=== PATIENT | female | born 1975 | race African-American/Black ===

== ENCOUNTER 2022-09-19 20:37 | Emergency (ER) | payer BC ==
--- OUTSIDE RECORDS SUMMARY | 2022-09-19 20:41 | XMS REPORT | Continuity of Care Document ---
:1975 Author Organization [facility] t Address [address] [place] [address] Care Team Providers Name Role Phone LAURA GREGG Primary Care Physician Unavailable BRYAN DAIGLE Attending Clinician Unavailable Only, Ange Pob2 Test Attending Clinician Unavailable Bryan Daigle DO Attending Clinician Nurse, Adc Pob Immunization Attending Clinician Unavailable Maycol Nuñez Attending Clinician MAYCOL SANDERSON Attending Clinician Unavailable MAYCOL SANDERSON Admitting Clinician Unavailable Payers Payer Name Policy Type Policy Number Effective Date Expiration Date Hayden DUGANS O [id number] 2020 00:00:00 Problems Condition Condition Condition Status Onset Resolution Last Treating Co mments Source Name Details Category Date Date Treatment Clinician Date Other Other Disease Active 2015-10 Univers general general 2-06 [place] of counseling [place] advice and advice 00 Mi dical for for Branch contracept contracept alonzo alonzo management management Elevated Elevated Disease Active 2015-10 Unive rs blood blood 2-06 ity of pressure pressure 00:00: [place] reading reading 00 Medical without without Branch diagnosis diagnosis of of hypertensi hypertensi on on Fibroids Fibroids Disease Active 2015-10 Overview: Un dean 2-06 Formattin ity of 00:00: g of this [place] 00 note Medical might be Branch different from the original. Reports diagnosed in 2012, records requested Anemia Anemia Disease Active Overview: Univer s 11-28 Formattin ity of 00:00: g of this note Medical might be Branch different from the original. ICD10 Diagnosis Term Order Runner Utility Well woman Well woman Disease Active Overview : Univers exam exam 11-27 Formattin ity of 00:00: g of this note Medical might be Branch different from the original. Pap smear- NIL with absent ECC. Repeat in 1 [id number] Diagnosis Term Order Runner Utility Morbid Morbid Disease Active Univers obesity obesity 11-27 ity of 00:00: [place] 00 Medical Branch Allergies, Adverse Reactions, Alerts Allergy Allergy Status Severity Reaction(s) Onset Inactive Treating Comm ents Source Name Type Date Date Clinician Codeine Propensi Active Hives Univers ty to 11-27 ity of adverse 00:00: [place] reaction 00 Medical s Branch CODEINE DRUG Active Hives Univers INGREDI 11-27 ity of 00:00: [place] 00 Medical Branch Social History Social Habit Start Date Stop Date Quantity Comments Source Exposure to Not sure University SARS-CoV-2 [place] [facility] (event) Branch History SDOH University o f Alcohol Frequency [facility] edical Branch History SDNY University o f Alcohol Std [place] [facility] Drinks Branch History SDNY University o f Alcohol Binge [place] [facility] al [facility] Alcohol intake 2020-12-29 2020-12-29 Current drinker of Un iversity of 00:00:00 00:00:00 alcohol (finding) [facility] edical Branch Tobacco use and 2013-11-27 2013-11-27 Never used Universit y of exposure 00:00:00 00:00:00 [facility] Branch Alcohol Comment 2013-11-27 2013-11-27 occasionally Univers ity of 00:00:00 00:00:00 [facility] Sex Ass[birth year] At [birth year] Universit y of 00:00:00 00:00:00 [facility] Smoking Status Start Date Stop Date Source Never smoker [facility] Medical Branch Medications Ordered Filled Start Stop Current Ordering Indication Dosage Frequency Signature Comments Components Source Medication Medication Date Date Medication? Clinician (SIG) Name Name acetaminoph No 1000mg 1,000 mg, Univers en 12-30 Oral, ity of (TYLENOL) 00:45: 23:39 ONCE, 1 [place] tablet [place] :00 dose, Wed Medical 1,000 mg 12/29/20 at Branch 1845, Routine dexamethaso 2020- No 10mg 10 mg, Uni vers ne 12-30 Intramuscu ity of (DECADRON 00:30: 23:37 lar, ONCE, [place] PHOSPHATE) 00 :00 1 dose, Medica l injection Sun12/29/20 Bran ch 10 mg at 1830, STAT ketorolac 2020- No 30mg 30 mg, Unive rs (TORADOL) 12-2903 Intramuscu ity of injection 23:30: 22:32 lar, ONCE, [place] 30 mg 00 :00 1 dose, Medical 12/29/20 Branch at 1730, LIDIA
Fa culty member approving Restricted medication : MAYCOL SANDERSON traMADoL 50 Yes [id number] 50mg Take 1 Univ ers mg tablet 3-03 tablet by ity o f 00:00: mouth [place] 00 every 6 Medical (six) Branch hours as needed for Pain (scale 7-10). Indication s: acute pain ibuprofen Yes [id number] 800mg Take 1 U nivers 800 mg 3-03 tablet by ity of tablet 00:00: mouth [place] 00 every 6 Medical (six) Branch hours as needed for Pain (scale 4-6). traMADoL 50 Yes [id number] 50mg Take 1 Univ ers mg tablet 3-03 tablet by ity o f 00:00: mouth [place] 00 every 6 Medical (six) Branch hours as needed for Pain (scale 7-10). Indication s: acute pain ibuprofen Yes [id number] 800mg Take 1 U nivers 800 mg 3-03 tablet by ity of tablet 00:00: mouth [place] 00 every 6 Medical (six) Branch hours as needed for Pain (scale 4-6). traMADoL 50 Yes [id number] 50mg Take 1 Univ ers mg tablet 3-03 tablet by ity o f 00:00: mouth [place] 00 every 6 Medical (six) Branch hours as needed for Pain (scale 7-10). Indication s: acute pain ibuprofen Yes [id number] 800mg Take 1 U nivers 800 mg 3-03 tablet by ity of tablet 00:00: mouth [place] 00 every 6 Medical (six) Branch hours as needed for Pain (scale 4-6). NUVARING 2015-10 Yes [id number] 1{each} Insert 1 Univers (NUVARING) 2-06 Each into ity of 0.12-0.015 00:00: vagina [place] mg/24 hr 00 once every Medic al vaginal month. Branch insert Insert vaginally and leave in place for 3 consecutiv e weeks, then remove for 1 week. NUVARING 2015-10 Yes [id number] 1{each} Insert 1 Univers (NUVARING) 2-06 Each into ity of 0.12-0.015 00:00: vagina [place] mg/24 hr 00 once every Medic al vaginal month. Branch insert Insert vaginally and leave in place for 3 consecutiv e weeks, then remove for 1 week. NUVARING 2015-10 Yes [id number] 1{each} Insert 1 Univers (NUVARING) 2-06 Each into ity of 0.12-0.015 00:00: vagina [place] mg/24 hr 00 once every Medic al vaginal month. Branch insert Insert vaginally and leave in place for 3 consecutiv e weeks, then remove for 1 week. MULTIVITS,C Yes 1{tbl} Take 1 Tab Univers A,MINERALS/ 1-30 by mouth ity of IRON/FA 16:45: daily. [place] (ONE-A-DAY 12 Medical WOMENS Branch FORMULA ORAL) omega-3 Yes 1g Take 1 g Univer s fatty 1-30 by mouth ity of acids-vitam 16:45: daily. [place] in E (FISH 12 Medical OIL) 1,000 Branch mg capsule MULTIVITS,C Yes 1{tbl} Take 1 Tab Univers A,MINERALS/ 1-30 by mouth ity of IRON/FA 10:45: daily. [place] (ONE-A-DAY 12 Medical WOMENS Branch FORMULA ORAL) omega-3 Yes 1g Take 1 g Univer s fatty 1-30 by mouth ity of acids-vitam 10:45: daily. [place] in E (FISH 12 Medical OIL) 1,000 Branch mg capsule MULTIVITS,C Yes 1{tbl} Take 1 Tab Univers A,MINERALS/ 1-30 by mouth ity of IRON/FA 10:45: daily. [place] (ONE-A-DAY 12 Medical WOMENS [place] FORMULA ORAL) omega-3 Yes 1g Take 1 g Univer s fatty 11-27 by mouth ity of acids-vitam 10:45: daily. [place] in E (FISH 12 Medical OIL) 1,000 Branch mg capsule Immunizations Ordered Filled Immunization Date Status Comments [facility] e Immunization Name Name SARS-COV-2 COVID-19 2021-10-31 Completed Unive rsity of SYDNEY/J&J VACCINE 00:00:00 [facility] SARS-COV-2 COVID-19 2021-10-31 Completed Unive rsity of SYDNEY/J&J VACCINE 00:00:00 [facility] SARS-COV-2 COVID-19 2021-01-17 Completed Unive rsity [facility] 2013-11-27 Completed [facility] 2013-11-27 Completed University of 00:00:00 [facility] Td 2002-10-29 Completed University of 00:00:00 [facility] Td 2002-10-29 Completed University of 00:00:00 [facility] Td 2002-10-29 Completed University of 00:00:00 [facility] Vital Signs Vital Name Observation Time Observation Value Comments Source Systolic blood 2020-12-30 00:06:46 142 mm[Hg] Univer sity of pressure [facility] Diastolic blood 2020-12-30 00:06:46 94 mm[Hg] Unive rsity of pressure [facility] Heart rate 2020-12-30 00:05:40 80 /min [facility] Respiratory rate 2020-12-30 00:05:40 16 /min [facility] Oxygen saturation in 2020-12-30 00:05:40 99 /min [facility] Arterial blood by [facility] Pulse oximetry [place] Body temperature 2020-12-29 21:56:00 37 [employer] [facility] Body weight 2020-12-29 21:56:00 99.791 kg [facility] BMI 2020-12-29 21:56:00 36.61 kg/m2 [facility] Procedures Procedure Date / Time Performed Performing Clinician Fredrick e SARS-COV-2 COVID-19 2021-10-31 21:34:19 Doctor Unassigned, No Un iversity of [place] VACCINE,0.5ML,IM Name [facility] (SYDNEY/J&J) XR HIPS 2 VW LEFT 2020-12-29 23:00:50 Maycol Sanderson [facility] URINALYSIS 2020-12-29 22:28:00 Maycol Sanderson [facility] Encounters Start End Encounter Admission Attending Care Care Encounter Source Date/Time Date/Time Type Type Clinicians Facility Department ID 2021-11-22 2021-11-22 Outpatient Tiffanie DAIGLE [facility] [id number] Univers 16:30:00 16:55:17 BRYAN blackwell [facility] 2021-11-22 2021-11-22 Laboratory Only, Ange Pob2 Test [facility] [id number] Univers 16:30:00 16:45:00 Only Bryan Daigle 350.1.13 .10 ity [facility] [id number] [place] PROF[place] [id number] Mi dical NAL 225 [facility] 2021-10-31 2021-10-31 Imm/Inj Nurse, Ange Pob Immunization [facility] [id number] Univers 15:40:00 15:40:00 Visit Bryan Daigle 350.1.13 .10 ity [facility] [id number] [place] PROF[place] [id number] Mi dical NAL 421 [facility] 2021-10-31 2021-10-31 Outpatient Tiffanie DAIGLE [facility] [id number] Univers 15:40:00 15:31:14 BRYAN blackwell [facility] 2020-12-29 2020-12-29 Emergency Wendy [facility] [id number] Univers 15:58:00 18:12:00 Maycol Combs 350.1.13.10 ity of [place] 4.2.7.2.686 [facility] [id number] [facility] 084 Branch 2020-12-29 2020-12-29 Emergency X RIKKI SANDERSON ERT [id number] Univers 15:58:00 18:12:00 MAYCOL blackwell [facility] Results Test Test Test Results Result Source Description Time Comments Comments XR HIPS 2 VW 2020-12- Impression: No evidence University [place] [address] of acute fracture or [facility] 23:33:55 dislocation. RL: [address] [facility] Clinical indication: Left hip pain. Ordering Physician: MAYCOL SANDERSON Technique: The frontal view the pelvis and 2 additional views of the lefthip were obtained. ?There are no prior pelvic or left hip imaging studiesavailable for comparison. Findings: There is no evidence of an acute fracture or dislocationinvolving the bones of the pelvis with particular attention to the lefthip. ?There is no radiopaque soft tissue foreign body. [facility], Radiant Results Inft User - 12/29/2020 5:34 PM CSTClinical indication: Left hip pain.Ordering Physician: MAYCOL LIULETechnique: The frontal view the pelvis and 2 additional views of the lefthip were obtained. There are no prior pelvic or left hip imaging studiesavailable for comparison.Findings: There is no evidence of an acute fracture or dislocationinvolving the bones of the pelvis with particular attention to the lefthip. There is no radiopaque soft tissue foreign body.IMPRESSIONImpressio n:No evidence of acute fracture or dislocation.RL: 4507 [facility] 2020-12-29 22:52:00 Test Item Value Reference Range Interpretation Comme nts APPEARANCE (test code = Clear Clear [id number]) COLOR (test code = 4814310813) Yellow Yellow PH (test code = 5468473025) 4.8-8.0 SP GRAVITY (test code = 1.003-1.030 H 1151959724) GLU U QUAL (test code = Normal Normal 2380313816) BLOOD (test code = 5248334797) Negative Negative KETONES (test code = 4059962259) Negative Negative PROTEIN (test code = 2887-8) 30 mg/dL Negative A UROBILIN (test code = 4.0 mg/dL Normal A 8152422050) BILIRUBIN (test code = Negative Negative 4624485321) NITRITE (test code = 6927268527) Negative Negative LEUK LIZ (test code = Negative Negative 9053349918) RBC/HPF (test code = 0607458331) See_Comment H [Automated message] The system which ge nerated this result transmit mango reference range: 0 - 3 HP F. The reference range was not used to interpret th is result as normal/abnormal . WBC/HPF (test code = 5723238719) See_Comment [Automated message] The system which ge nerated this result transmit mango reference range: 0 - 5 HP F. The reference range was not used to interpret th is result as normal/abnormal . BACTERIA (test code = Negative Negative 6786599199) MUCOUS (test code = 8911802775) Moderate Negative LPF A AMORPHOUS (test code = Rare Rare HPF 7324997123) SQ EPITH (test code = HPF 5834540419) Lab Interpretation (test code = Abnormal 34377-8) [facility]
[2022-09-19] MEDS ORDERED: LIDOCAINE 1% MPF 5 ML VIAL ONE (21:19)
--- NOTE | 2022-09-19 22:02 | ER ---
Nurse's Notes [facility] Name: Rach Olsen Age: 46 yrs Sex: Female : 1975 Arrival Date: 09/19/2022 Time: 20:41 Bed 6 Private MD: Diagnosis: Laceration without foreign body of left hand, initial encounter Presentation: 09/19 20:56 Chief complaint: Patient states: Accidentally cut her left hand with a knife while kb3 cooking approximately 45 minutes. Coronavirus screen: Vaccine status: Patient reports receiving the 2nd dose of the covid vaccine. Client denies travel out of the [place] in the last 14 days. Ebola Screen: Patient negative for fever greater than or equal to 101.5 degrees Fahrenheit, and additional compatible Ebola Virus Disease symptoms Patient denies exposure to infectious person. Patient denies travel to an Ebola-affected area in the 21 days before illness onset. Complicating Factors: There are no complicating factors for this patient. Initial Sepsis Screen: Does the patient meet any 2 criteria? No. Patient's initial sepsis screen is negative. Does the patient have a suspected source of infection? No. Patient's initial sepsis screen is negative. Risk Assessment: Do you want to hurt yourself or someone else? Patient reports no desire to harm self or others. Onset of symptoms was September 19, 2022 at 20:15. 20:56 Method Of Arrival: Ambulatory kb3 20:56 Acuity: LUIS MIGUEL 4 kb3 Triage Assessment: 20:58 General: Appears in no apparent distress. Behavior is calm, cooperative. Pain: kb3 Complains of pain in lateral aspect of left hand Pain does not radiate. Pain currently is 3 out of 10 on a pain scale. Injury Description: Laceration sustained to lateral aspect of left hand. 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 - Social history:: Smoking status: Patient denies any tobacco usage or history of. Screenin:18 Abuse screen: Denies threats or abuse. Denies injuries from another. Nutritional ll3 screening: No deficits noted. Tuberculosis screening: No symptoms or risk factors identified. Fall Risk None identified. Vital Signs: 20:56 BP 144 / 110; Pulse 80; Resp 20; Temp 99; Pulse Ox 99% ; Weight 77.11 kg; Height 5 ft. kb3 6 in. (167.64 cm); Pain 3/10; 20:56 Body Mass Index 27.44 (77.11 kg, 167.64 cm) kb3 ED Course: 20:41 Patient arrived in ED. dt4 20:55 Lance Smith PA is PHCP. cp 20:55 Lance Nelson MD is Attending Physician. cp 20:58 Triage completed. kb3 20:58 Arm band placed on right wrist. kb3 21:06 Essie Estevez RN is Primary Nurse. vc1 22:18 Patient has correct armband on for positive identification. Bed in low position. Call ll3 light in reach. Side rails up X 1. 22:18 Assist provider with laceration repair on lateral aspect of left hand that was 2.5 cm. ll3 or less using sutures. Set up tray. Performed by Lance SANTO Dressed with 4X4s, Adaptic, Kerlix, Patient tolerated well. IV discontinued, intact, bleeding controlled, No redness/swelling at site. Pressure dressing applied. Administered Medications: 22:05 Drug: Lidocaine (1 %) 5 ml {Note: Administered by GAL Guerra.} Volume: 5 ml; Route: ll3 Infiltration; 22:19 Follow up: Response: No adverse reaction ll3 Medication: 22:19 VIS not applicable for this client. ll3 Outcome: 22:02 Discharge ordered by . cp 22:18 Discharged to home ambulatory. ll3 22:18 Condition: stable 22:18 Discharge instructions given to patient, Instructed on discharge instructions, follow up and referral plans. Demonstrated understanding of instructions, follow-up care. 22:19 Patient left the ED. ll3 Signatures: Lance Smith PA PA cp Loubet, Lynsea, RN RN ll3 Essie Estevez RN RN vc1 Vanessa Nicholas, RN RN kb3 Valerie Buchanan4
--- NOTE | 2022-09-19 22:02 | EDPHYS ---
Physician Documentation [facility] Name: Rach Olsen Age: 46 yrs Sex: Female : 1975 Arrival Date: 09/19/2022 Time: 20:41 Bed 6 Private MD: Lance Orona HPI: 09/19 21:20 This 46 yrs old Black Female presents to ER via Ambulatory with complaints of cp Laceration To Hand. 21:20 The patient has a laceration occurred at home, and there are no complicating factors. cp using knife while cooking. The laceration(s) is(are) located on the dorsal side metacarpal head of left index finger. Onset: The symptoms/episode began/occurred just prior to arrival. Associated signs and symptoms: The patient has no apparent associated signs or symptoms. 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 - Social history:: Smoking status: Patient denies any tobacco usage or history of. ROS: 21:25 Constitutional: Negative for body aches, chills, fever. cp 21:25 Skin: Positive for laceration(s), of the dorsal side of left hand. 21:25 Neuro: Negative for numbness, tingling. 21:25 All other systems are negative. Exam: 21:30 Constitutional: The patient appears in no acute distress, alert, awake, comfortable, cp non-toxic, well developed, well nourished. 21:30 Musculoskeletal/extremity: Extremities: grossly normal except: noted in the dorsal side cp of left hand: laceration, ROM: full active range of motion, in the left index finger, Perfusion: the extremity is normally perfused throughout, Sensation intact. Tendon exam: specific tendon testing normal through active and passive range of motion 21:30 Skin: injury, laceration(s), the wound is approximately 3 cm(s), of the dorsal side metacarpal head left index finger, that can be described as clean, no foreign body, linear, with mild bleeding. Vital Signs: 20:56 BP 144 / 110; Pulse 80; Resp 20; Temp 99; Pulse Ox 99% ; Weight 77.11 kg; Height 5 ft. kb3 6 in. (167.64 cm); Pain 3/10; 20:56 Body Mass Index 27.44 (77.11 kg, 167.64 cm) kb3 Laceration: 21:55 Wound Repair of 3cm ( 1.2in ) subcutaneous laceration to dorsal aspect metacarpal head cp of left index finger. Linear shaped.. Distal neuro/vascular/tendon intact. Anesthesia: Wound infiltrated with 4 mls of 1% lidocaine. Wound prep: Moderate cleansing by me, Wound irrigation by me. Skin closed with 4 4-0 Prolene using interrupted sutures and sterile technique. Dressed with 4x4's. Patient tolerated well. MDM: 21:04 Patient medically screened. cp 22:02 Data reviewed: vital signs, nurses notes, and as a result, I will discharge patient. cp 22:02 Differential diagnosis: superficial laceration, tendon injury, vascular injury, open cp fracture. Counseling: I had a detailed discussion with the patient and/or guardian regarding: the historical points, exam findings, and any diagnostic results supporting the discharge/admit diagnosis, to return to the emergency department if symptoms worsen or persist or if there are any questions or concerns that arise at home. Response to treatment: the patient's symptoms have markedly improved after treatment, and as a result, I will discharge patient. 09/19 21:16 Order name: Dressing - Wound; Complete Time: 21:19 cp 09/19 21:16 Order name: Gloves, Sterile; Complete Time: 21:19 cp 09/19 21:16 Order name: Setup Suture Tray; Complete Time: 21:19 cp 09/19 21:16 Order name: Wound Care; Complete Time: 21:19 cp 09/19 21:55 Order name: Wound dressing; Complete Time: 22:18 cp Administered Medications: 22:05 Drug: Lidocaine (1 %) 5 ml {Note: Administered by GAL Guerra.} Volume: 5 ml; Route: ll3 Infiltration; 22:19 Follow up: Response: No adverse reaction ll3 Disposition Summary: 09/19/22 22:02 Discharge Ordered Location: Home cp Problem: new cp Symptoms: have improved cp Condition: Stable cp Diagnosis - Laceration without foreign body of left hand, initial encounter cp Followup: cp - With: Private Physician - When: 7 - 10 days - Reason: Staple/Suture removal Discharge Instructions: - Discharge Summary Sheet cp - Laceration Care, Adult cp - Sutured Wound Care cp Forms: - Medication Reconciliation Form cp - Thank You Letter cp - Antibiotic Education cp - Prescription Opioid Use cp Signatures: Lance Smith PA PA cp Loubet, Lynsea, RN RN ll3 Vanessa Nicholas RN RN kb3
[2022-09-19 22:24] VITALS: BP 144/110; TEMP 99; O2SAT 99
== END 2022-09-19 22:19 | disposition home or self-care (01) ==
LOC: ER 20:37
PROC: 0JQK0ZZ Repair Left Hand Subcutaneous Tissue and Fascia, Open Approach (ICD-10-PCS; principal; 2022-09-19)
DX: S61.412A Laceration without foreign body of left hand, initial encounter (principal)
CPT/HCPCS: 99283; 12001; J2001

== ENCOUNTER 2022-09-29 13:34 | Emergency (ER) | payer BC ==
--- OUTSIDE RECORDS SUMMARY | 2022-09-29 13:38 | XMS REPORT | Continuity of Care Document ---
:1975 Author Organization [facility] t Address [address] [place] [address] Care Team Providers Name Role Phone LAURA GREGG Primary Care Physician Unavailable BRYAN DAIGLE Attending Clinician Unavailable Only, Ange Pob2 Test Attending Clinician Unavailable Bryan Daigle DO Attending Clinician Nurse, Ange Pob Immunization Attending Clinician Unavailable Maycol Nuñez Attending Clinician MAYCOL SANDERSON Attending Clinician Unavailable MAYCOL SANDERSON Admitting Clinician Unavailable Payers Payer Name Policy Type Policy Number Effective Date Expiration Date S emmanuel DELA CRUZ [facility] [id number] 2020 00:00:00 Problems Condition Condition Condition Status Onset Resolution Last Treating Co mments Source Name Details Category Date Date Treatment Clinician Date Other Other Disease Active 2015-10 Univers general general 2-06 [place] of counseling [place] and [place] and advice 00 [place] for for Branch contracept contracept alonzo [...] different from the original. ICD10 Diagnosis Term Auto Parker Utility Well woman Well woman Disease Active Overview : Univers exam exam 11-27 Formattin ity of 00:00: g of this note Medical might be Branch different from the original. Pap smear- NIL with absent ECC. Repeat in 1 [id number] Diagnosis Term Auto Parker Utility Morbid Morbid Disease Active Univers obesity obesity 11-27 ity of 00:00: [place] 00 Medical Branch Allergies, Adverse Reactions, Alerts Allergy Allergy Status Severity Reaction(s) Onset Inactive Treating Comm ents Source Name Type Date Date Clinician Any Propensi Active Hives Univers ty to 11-27 ity of adverse 00:00: [place] reaction 00 Medical s Branch CODEINE DRUG Active Hives Univers INGREDI 11-27 ity of 00:00: [place] 00 Medical Branch Social History Social Habit Start Date Stop Date Quantity Comments Source Exposure to Not sure [facility] SARS-CoV-2 [place] [facility] (event) Branch History SDOH University o f Alcohol Frequency [facility] edical Branch History SDNE University o f Alcohol Std [place] [facility] Drinks Branch History [facility] University o f Alcohol Binge [place] [facility] al Branch Alcohol intake 2020-12-29 2020-12-29 Current drinker of Un iversity of 00:00:00 00:00:00 alcohol (finding) [facility] edical Branch Tobacco use and 2013-11-27 2013-11-27 Never used Universit y of exposure 00:00:00 00:00:00 [facility] Branch Alcohol Comment 2013-11-27 2013-11-27 occasionally Univers ity of 00:00:00 00:00:00 [facility] Branch Sex [birth year] Universit y of 00:00:00 00:00:00 [facility] Branch Smoking Status Start Date Stop Date Source Never smoker [facility] Medical Branch Medications Ordered Filled Start Stop Current Ordering Indication Dosage Frequency Signature Comments Components Source Medication Medication Date Date Medication? Clinician (SIG) Name Name acetaminoph 2020- No 1000mg 1,000 mg, Univers en 12-30 [...] No 30mg 30 mg, Unive rs (TORADOL) 12-29 Intramuscu ity of injection 23:30: 22:32 lar, [...] 7-10). Indication s: acute pain ibuprofen Yes [id number] 800mg Take 1 U nivers 800 mg [...] 7-10). Indication s: acute pain ibuprofen Yes [id number] 800mg Take 1 U nivers 800 mg [...] 7-10). Indication s: acute pain ibuprofen Yes [id number] 800mg Take 1 U nivers 800 mg 3-03 tablet by ity of tablet 00:00: mouth [place] 00 every 6 Medical (six) Branch hours as needed for Pain (scale 4-6). NUVARING 2015-10 Yes [id number] 1{each} Insert 1 Univers (NUVARING) 2-06 Each into ity of 0.12-0.015 00:00: vagina [place] mg/24 hr 00 once every Medic al vaginal month. Branch insert Insert vaginally and leave in place for 3 consecutiv e weeks, then remove for 1 week. NUVARING 2015-10 Yes [id number] 1{each} Insert 1 Univers (NUVARING) 2-06 Each into ity of 0.12-0.015 00:00: vagina [place] mg/24 hr 00 once every Medic al vaginal month. Branch insert Insert vaginally and leave in place for 3 consecutiv e weeks, then remove for 1 week. NUVARING 2015-10 Yes [id number] 1{each} Insert 1 Univers (NUVARING) 2-06 Each into ity of 0.12-0.015 00:00: vagina [place] mg/24 hr 00 once every Medic al vaginal month. Branch insert Insert vaginally and leave in place for 3 consecutiv e weeks, then remove for 1 week. MULTIVITS,C Yes 1{tbl} Take 1 Tab Univers A,MINERALS/ 1-30 by mouth ity of IRON/FA 16:45: daily. [place] (ONE-A-DAY 12 Medical WOMENS Branch FORMULA ORAL) omega-3 Yes 1g Take 1 g Univer s fatty 1-30 by mouth ity of acids-vitam 16:45: [place]. [place] in [place] (FISH 12 Medical OIL) 1,000 Branch mg capsule MULTIVITS,C Yes 1{tbl} Take 1 Tab Univers A,MINERALS/ 1-30 by mouth ity of IRON/FA 10:45: daily. [place] (ONE-A-DAY 12 Medical WOMENS Branch FORMULA ORAL) omega-3 Yes 1g Take 1 g Univer s fatty 1-30 by mouth ity of acids-vitam 10:45: [place]. [place] (FISH 12 Medical OIL) 1,000 Branch mg capsule MULTIVITS,C 2014-0 Yes 1{tbl} Take 1 Tab Univers A,MINERALS/ 1-30 by mouth ity of IRON/FA 10:45: daily. [place] (ONE-A-DAY 12 Medical WOMENS [place] FORMULA ORAL) omega-3 Yes 1g Take 1 g Univer s fatty 30 by mouth ity of acids-vitam 10:45: [place]. [place] (FISH 12 Medical OIL) 1,000 Branch mg capsule Immunizations Ordered Filled Immunization Date Status Comments [facility] e Immunization Name Name SARS-COV-2 COVID-19 2021-10-31 Completed Unive rsity of SYDNEY/J&J VACCINE 00:00:00 [facility] SARS-COV-2 COVID-19 2021-10-31 Completed Unive rsity of SYDNEY/J&J VACCINE 00:00:00 [facility] SARS-COV-2 COVID-19 2021-01-17 Completed Unive rsity of SYDNEY/J&J VACCINE 00:00:00 [facility] 2013-11-27 Completed University [facility] 00:00:00 [facility] 2013-[facility]-27 Completed University [facility] 00:00[facility]00 [place] [facility] 2013-11-27 Completed University of 00:00:00 [facility] Td 2002-10-29 Completed University of 00:00:00 [facility] Td 2002-10-29 Completed University of 00:00:00 [facility] Td 2002-10-29 Completed University of 00:00:00 [facility] Vital Signs Vital Name Observation Time Observation Value Comments Source Systolic blood 2020-12-30 00:06:46 142 mm[Hg] Univer sity of pressure [facility] Diastolic blood 2020-12-30 00:06:46 94 mm[Hg] Unive rsity of pressure [facility] Heart rate 2020-12-30 00:05:40 80 /min [facility] Respiratory rate 2020-12-30 00:05:40 [facility] /[facility] Oxygen saturation in 2020-12-30 00:05:40 99 /min [facility] Arterial blood by [facility] Pulse oximetry [place] Body temperature 2020-12-29 21:56:00 37 [facility] Body weight 2020-12-29 21:56:00 99.791 kg [facility] BMI 2020-12-29 21:56:00 36.61 kg/m2 [facility] Procedures Procedure Date / Time Performed Performing Clinician Fredrick barahona SARS-COV-2 COVID-19 2021-10-31 21:34:19 Doctor Unassigned, No Un iversity of [place] VACCINE,0.5ML,IM Name [facility] (SYDNEY/J&J) XR HIPS 2 VW LEFT 2020-12-29 23:00:50 Maycol Sanderson [facility] URINALYSIS 2020-12-29 22:28:00 Maycol Sanderson [facility] Encounters Start End Encounter Admission Attending Care Care Encounter Source Date/Time Date/Time Type Type Clinicians Facility Department ID 2021-11-22 2021-11-22 Outpatient R OBDULIA AULTMAN [facility] [id number] Univers 16:30:00 16:55:17 [facility] 2021-11-22 2021-11-22 Laboratory Only, Ange Pob2 Test [facility] [id number] .[id number] Univers 16:30:00 16:45:00 Only Bryan Daigle [id number] .10 ity [facility] [id number] [id number] [place] NAL 225 [facility] 2021-10-31 2021-10-31 Imm/Inj Nurse, Ange Pob Immunization [facility] [id number] Univers 15:40:00 15:40:00 Visit Bryan Daigle 350.1.13 .10 ity [facility] [id number] [id number] [place] NAL 421 [facility] 2021-10-31 2021-10-31 Outpatient R OBDULIA AULTMAN [facility] [id number] Univers 15:40:00 15:31:14 BRYAN [facility] 2020-12-29 2020-12-29 Emergency Wendy [facility] [id number] Univers 15:58:00 18:12:00 Maycol Combs [id number] ity of [place] [id number] [facility] [id number] [facility] 084 Branch 2020-12-29 2020-12-29 Emergency X WENDY ILAGUSTÍN ERT [id number] Univers 15:58:00 18:12:00 MAYCOL blackwell [facility] Results Test Test Test Results Result Source Description Time Comments Comments XR HIPS 2 VW 2020-12- Impression: No evidence University [place] [address] of acute fracture or [facility] 23:33:55 dislocation. RL: [facility] Clinical indication: Left hip pain. Ordering [...] is no radiopaque soft tissue foreign body. [facility], Radiant Results Inft User - 12/29/2020 5:34 [...] nts APPEARANCE (test code = Clear Clear 4638331306) COLOR (test code = 1670346672) Yellow Yellow PH (test code = 0613147642) 4.8-8.0 SP GRAVITY (test code = 1.003-1.030 H 7168375007) GLU U QUAL (test code = Normal Normal 2537060826) BLOOD (test code = 5117048525) Negative Negative KETONES (test code = 4348807009) Negative Negative PROTEIN (test code = 2887-8) 30 mg/dL Negative A UROBILIN (test code = 4.0 mg/dL Normal A 4005967538) BILIRUBIN (test code = Negative Negative 1987977101) NITRITE (test code = 8956026805) Negative Negative LEUK LIZ (test code = Negative Negative 2653189080) RBC/HPF (test code = 7487068770) See_Comment H [Automated message] The system which ge nerated this result transmit mango reference range: 0 - 3 HP F. The reference range was not used to interpret th is result as normal/abnormal . WBC/HPF (test code = 4073587391) See_Comment [Automated message] The system which ge nerated this result transmit mango reference range: 0 - 5 HP F. The reference range was not used to interpret th is result as normal/abnormal . BACTERIA (test code = Negative Negative 8398927715) MUCOUS (test code = 5793450427) Moderate Negative LPF A AMORPHOUS (test code = Rare Rare HPF 9362426524) SQ EPITH (test code = HPF 8308789671) Lab Interpretation (test code = Abnormal 45647-4) [facility]
--- NOTE | 2022-09-29 14:18 | EDPHYS ---
Physician Documentation [facility] Name: Rach Olsen Age: 46 yrs Sex: Female : 1975 Arrival Date: 09/29/2022 Time: 13:39 Bed DIS3 Private MD: ED Physician Esa Graham HPI: 09/29 14:12 This 46 yrs old Black Female presents to ER via Ambulatory with complaints of Suture cp Removal. 14:12 The patient has sutures on the dorsal side metacarpal head left index finger. Previous cp treatment: The patient was initially treated 10 day(s) ago, the care was rendered at [facility], Treatment type: The patient's original treatment included sutures. 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 - Social history:: Smoking status: Patient denies any tobacco usage or history of. ROS: 14:13 All other systems are negative. cp Exam: 14:13 Skin: Wound recheck: Suture laceration closure: the wound is healing well, no drainage, cp no erythema, no swelling, mild dehiscence, [address] dorsal side metacarpal head left index finger. Vital Signs: 14:08 BP 138 / 95; Pulse 91; Resp 20; Temp 98; Pulse Ox 96% ; Pain 0/10; kb3 MDM: 14:11 Patient medically screened. cp 14:14 Data reviewed: vital signs, nurses notes, and as a result, I will discharge patient. cp 09/29 14:12 Order name: Splint - Finger; Complete Time: 14:35 cp Administered Medications: No medications were administered Disposition: 18:53 Co-signature as Attending Physician, Esa Graham MD. rn Disposition Summary: 09/29/22 14:17 Discharge Ordered Location: Home cp Problem: new cp Symptoms: have improved cp Condition: Stable cp Diagnosis - Encounter for attention to dressings, sutures and drains cp Followup: cp - With: Emergency Department - When: 4-5 days - Reason: Staple/Suture removal Discharge Instructions: - Discharge Summary Sheet cp - Sutured Wound Care cp Forms: - Medication Reconciliation Form cp - Thank You Letter cp - Antibiotic Education cp - Prescription Opioid Use cp Signatures: Esa Graham MD MD rn Lance Smith PA PA cp Bradberry, Kelly RN RN kb3
--- NOTE | 2022-09-29 14:18 | ER ---
Nurse's Notes [facility] Name: Rach Olsen Age: 46 yrs Sex: Female : 1975 Arrival Date: 09/29/2022 Time: 13:39 Bed DIS3 Private MD: Diagnosis: Encounter for attention to dressings, sutures and drains Presentation: 09/29 14:08 Chief complaint: Patient states: pt presents for suture removal from right knuckle. kb3 Coronavirus screen: Vaccine status: Patient reports receiving the 2nd dose of the covid vaccine. Client denies travel out of the [place] in the last 14 days. Ebola Screen: Patient negative for fever greater than or equal to 101.5 degrees Fahrenheit, and additional compatible Ebola Virus Disease symptoms Patient denies exposure to infectious person. Patient denies travel to an Ebola-affected area in the 21 days before illness onset. Initial Sepsis Screen: Does the patient meet any 2 criteria? No. Patient's initial sepsis screen is negative. Does the patient have a suspected source of infection? No. Patient's initial sepsis screen is negative. Risk Assessment: Do you want to hurt yourself or someone else? Patient reports no desire to harm self or others. Onset of symptoms was September 19, 2022. 14:08 Method Of Arrival: Ambulatory kb3 14:08 Acuity: LUIS MIGUEL 5 kb3 Triage Assessment: 14:10 General: Appears in no apparent distress. Behavior is calm, cooperative. Pain: Denies kb3 pain. 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 - Social history:: Smoking status: Patient denies any tobacco usage or history of. Screenin:48 Abuse screen: Denies threats or abuse. Denies injuries from another. Nutritional ss screening: No deficits noted. Tuberculosis screening: Never had TB. Fall Risk None identified. Assessment: 14:48 General: Appears in no apparent distress. comfortable, Behavior is calm, cooperative. ss Neuro: Level of Consciousness is awake, alert, obeys commands. Respiratory: Airway is patent Respiratory effort is even, unlabored, Respiratory pattern is regular, symmetrical. Derm: Skin is intact, is healthy with good turgor, Skin is pink, warm \T\ dry. normal. Musculoskeletal: Circulation, motion, and sensation intact. Range of motion: Swelling absent. Vital Signs: 14:08 BP 138 / 95; Pulse 91; Resp 20; Temp 98; Pulse Ox 96% ; Pain 0/10; kb3 ED Course: 13:39 Patient arrived in ED. mr 13:42 Lance Smith PA is PHCP. cp 13:42 Esa Graham MD is Attending Physician. cp 14:10 Triage completed. kb3 14:10 Arm band placed on right wrist. kb3 14:48 Patient has correct armband on for positive identification. ss 14:48 No provider procedures requiring assistance completed. Patient did not have IV access ss during this emergency room visit. finger splint placed to affected area. Administered Medications: No medications were administered Medication: 14:48 VIS not applicable for this client. ss Outcome: 14:17 Discharge ordered by . cp 14:49 Discharged to home ambulatory. ss 14:49 Condition: good 14:49 Discharge instructions given to patient, Instructed on discharge instructions, follow up and referral plans. Demonstrated understanding of instructions, follow-up care, splint care. 14:49 Patient left the ED. ss Signatures: Tiana Chavez mr Wendy Nieto, RN RN ss Lance Smith PA PA cp Bradberry, Kelly, RN RN kb3
[2022-09-29 15:12] VITALS: BP 138/95; TEMP 98; O2SAT 96
== END 2022-09-29 14:49 | disposition home or self-care (01) ==
LOC: ER 13:34
DX: Z48.02 Encounter for removal of sutures (principal)
CPT/HCPCS: 99283

== ENCOUNTER 2022-10-04 18:05 | Emergency (ER) | payer BC ==
--- NOTE | 2022-10-04 18:51 | ER ---
Nurse's Notes [facility] Name: Rach Olsen Age: 46 yrs Sex: Female : 1975 Arrival Date: 10/04/2022 Time: 18:07 Bed Waiting Private MD: Diagnosis: Encounter for removal of sutures Assessment: 10/04 18:38 Reassessment: Roly in triage educating pt on suture removal; stated suggests pt to vg1 wait a couple more days, stated if removed now may dehisce. 18:45 Reassessment: Pt has decided to leave sutures for a couple more days; provider. [facility] ED Course: 18:07 Patient arrived in ED. mr 18:35 Martin Dunham PA is PHCP. mika 18:35 Esa Graham MD is Attending Physician. [facility] 18:51 Talib Zheng MD is Referral Physician. mika Administered Medications: No medications were administered Outcome: 18:51 Discharge ordered by MD. [facility] 18:54 No charge visit due to Pt came in for suture removal and was advised by provider to vg1 wait a couple of more days . 18:54 Patient left the ED. 1 Signatures: Martin Dunham PA PA jmm Rivera, Mary mr Garcia, Victoria, RN RN vg1
--- NOTE | 2022-10-04 18:51 | EDPHYS ---
Physician Documentation [facility] Name: Rach Olsen Age: 46 yrs Sex: Female : 1975 Arrival Date: 10/04/2022 Time: 18:07 Bed Waiting Private MD: ED Physician Esa Graham HPI: 10/04 18:50 This 46 yrs old Black Female presents to ER via Unassigned with complaints of Suture jmm Removal. 18:50 The patient has sutures on the right hand. Sutures/erasmo progress: The patient's jmm wound displays wound dehiscence. The patient has not experienced similar symptoms in the past. ROS: 18:50 Constitutional: Negative for fever, chills, and weight loss, Cardiovascular: Negative jmm for chest pain, palpitations, and edema, Respiratory: Negative for shortness of breath, cough, wheezing, and pleuritic chest pain. 18:50 All other systems are negative. Exam: 18:50 Constitutional: This is a well developed, well nourished patient who is awake, alert, jmm and in no acute distress. Head/Face: atraumatic. Eyes: EOMI, no conjunctival erythema appreciated ENT: Moist Mucus Membranes Neck: Trachea midline, Supple Chest/axilla: Normal chest wall appearance and motion. Cardiovascular: Regular rate and rhythm. No edema appreciated Respiratory: Normal respirations, no respiratory distress appreciated Abdomen/GI: Non distended Back: Normal ROM 18:50 Skin: Wound dehiscence noted to the left hand laceration, no purulent drainage, induration, or tenderness to palpation appreciated. 18:50 Neuro: Orientation: is normal, Mentation: is normal, Memory: is normal. 18:50 Psych: Behavior/mood is pleasant, cooperative. MDM: 18:50 Patient medically screened. [facility] 18:50 Data reviewed: vital signs, nurses notes. Counseling: I had a detailed discussion with jmvíctor the patient and/or guardian regarding: the historical points, exam findings, and any diagnostic results supporting the discharge/admit diagnosis, the need for outpatient follow up, to return to the emergency department if symptoms worsen or persist or if there are any questions or concerns that arise at home. 18:50 ED course: I did offer to remove sutures and apply a wet-to-dry dressing with follow-up jmm to hand. Patient elected to keep the sutures. Will return for suture removal. Patient is given follow-up with hand surgery for further evaluation.. Administered Medications: No medications were administered Disposition: 10/05 07:04 Co-signature as Attending Physician, Esa Graham MD. rn Disposition Summary: 10/04/22 18:51 Discharge Ordered Location: Home [facility] Condition: Stable jmm Diagnosis - Encounter for removal of sutures [facility] Followup: [facility] - With: Talib Zheng MD - When: 2 - 3 days - Reason: Recheck today's complaints, Continuance of care, Re-evaluation by your physician Discharge Instructions: - Discharge Summary Sheet [facility] - Laceration Care, Adult jm Forms: - Medication Reconciliation Form [facility] - Thank You Letter [facility] - Antibiotic Education [facility] - Prescription Opioid Use [facility] Signatures: Martin Dunham PA PA Esa Donnelly MD MD extern: (The following items were deleted from the chart) 10/04 19:11 18:50 Skin: Wound dehiscence noted to the right hand laceration, no purulent drainage, m induration, or tenderness to palpation appreciated. [facility]
--- OUTSIDE RECORDS SUMMARY | 2022-10-04 19:11 | XMS REPORT | Continuity of Care Document ---
:1975 Author Organization [facility] t Address [address] [place] [address] Care Team Providers Name Role Phone LAURA [...] Date Expiration Date S emmanuel DELA CRUZ [facility] [id number] 2020 00:00:00 Problems Condition Condition Condition Status Onset Resolution Last Treating Co mments Source Name Details Category Date Date Treatment Clinician Date Other Other Disease Active 2015-10 Univers general general 2-06 [place]y of counseling [place] and advice 00 [place] dical for for Branch contracept contracept alonzo [...] different from the original. 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 Pap smear- NIL with absent ECC. Repeat in 1 [id number] Diagnosis Term [employer] Utility Morbid Morbid Disease Active Univers obesity [...] Quantity Comments Source Exposure to Not sure [facility] SARS-CoV-2 [place] [facility] (event) Branch History SDOH University o f Alcohol Frequency [facility] edical Branch History SDMN University o f Alcohol Std [place] Medical Drinks Branch History [facility] University o f Alcohol Binge [place] Medic al Branch Alcohol intake 2020-12-29 2020-12-29 Current drinker of Un iversity of 00:00:00 00:00:00 alcohol (finding) [facility] edical Branch Tobacco use and 2013-11-27 2013-11-27 Never used Universit y of exposure 00:00:00 00:00:00 [facility] Branch Alcohol Comment 2013-11-27 2013-11-27 occasionally Univers ity of 00:00:00 00:00:00 [facility] Branch Sex Ass[birth year] At [birth year] Universit y of 00:00:00 00:00:00 [facility] Branch Smoking Status Start Date Stop Date Source Never smoker [facility] Branch Medications Ordered Filled Start [...] 7-10). Indication s: acute pain ibuprofen Yes [id number] 800mg Take 1 U nivers 800 mg [...] 7-10). Indication s: acute pain ibuprofen Yes [id number] 800mg Take 1 U nivers 800 mg [...] 7-10). Indication s: acute pain ibuprofen Yes [id number] 800mg Take 1 U nivers 800 mg 3-03 tablet by ity of tablet 00:00: mouth [place] 00 every 6 Medical (six) Branch hours as needed for Pain (scale 4-6). NUVARING 2015-10 Yes [id number] 1{each} Insert 1 Univers (NUVARING) 2-06 Each into ity of 0.12-0.015 00:00: vagina [place] mg/24 hr 00 once every Medic al vaginal month. Branch insert Insert vaginally and leave in place for 3 consecutiv e weeks, then remove for 1 week. NUVARING 2015-10 Yes [id number] 1{each} Insert 1 Univers (NUVARING) 2-06 Each into ity of 0.12-0.015 00:00: vagina [place] mg/24 hr 00 once every Medic al vaginal month. Branch insert Insert vaginally and leave in place for 3 consecutiv e weeks, then remove for 1 week. NUVARING 2015-10 Yes [id number] 1{each} Insert 1 Univers (NUVARING) 2-06 Each into ity of 0.12-0.015 00:00: vagina [place] mg/24 hr 00 once every Medic al vaginal month. Branch insert Insert vaginally and leave in place for 3 consecutiv e weeks, then remove for 1 week. MULTIVITS,C Yes 1{tbl} Take 1 Tab Univers A,MINERALS/ 1-30 by mouth ity of IRON/FA 16:45: daily. [place] (ONE-A-DAY 12 Medical WOMENS Branch FORMULA ORAL) omega-3 Yes 1g Take 1 g Univer s fatty 1-30 by mouth ity of acids-vitam 16:45: [place]. [place] (FISH 12 Medical OIL) 1,000 Branch mg capsule MULTIVITS,C Yes 1{tbl} Take 1 Tab Univers A,MINERALS/ 1-30 by mouth ity of IRON/FA 10:45: daily. [place] (ONE-A-DAY 12 Medical WOMENS Branch FORMULA ORAL) omega-3 Yes 1g Take 1 g Univer s fatty 1-30 by mouth ity of acids-vitam 10:45: [place]. [place] (FISH 12 Medical OIL) 1,000 Branch mg capsule MULTIVITS,C 2014-0 Yes 1{tbl} Take 1 Tab Univers A,MINERALS/ 1-30 by mouth ity of IRON/FA 10:45: daily. [place] (ONE-A-DAY 12 Medical WOMENS [place] FORMULA ORAL) omega-3 Yes 1g Take 1 g Univer s fatty 30 by mouth ity of acids-vitam 10:45: [place]. [place] (FISH 12 Medical OIL) 1,000 Branch mg capsule Immunizations Ordered Filled Immunization Date Status Comments [facility] e Immunization Name Name SARS-COV-2 COVID-19 2021-10-31 Completed Unive rsity of SYDNEY/J&J VACCINE 00:00:00 [facility] SARS-COV-2 COVID-19 2021-10-31 Completed Unive rsity of SYDNEY/J&J VACCINE 00:00:00 [facility] SARS-COV-2 COVID-19 2021-01-17 Completed Unive rsity of SYDNEY/J&J VACCINE 00:00:00 [facility] 2013-11-27 Completed [facility] Completed University of 00:00:00 [facility] Td 2002-10-29 Completed University of 00:00:00 [facility] Td 2002-10-29 Completed University of 00:00:00 [facility] Td 2002-10-29 Completed University of 00:00:00 [facility] Vital Signs Vital Name Observation Time Observation Value Comments Source Systolic blood 2020-12-30 00:06:46 142 mm[Hg] Univer sity of pressure [facility] Diastolic blood 2020-12-30 00:06:46 94 mm[Hg] Unive rsity of pressure [facility] Heart rate 2020-12-30 00:05:40 80 /min [facility] acute hospital Respiratory rate 2020-12-30 00:05:40 16 /min [facility] Oxygen saturation in 2020-12-30 00:05:40 99 /min [facility] Arterial blood by [facility] Pulse oximetry [place] Body temperature 2020-12-29 21:56:00 37 Yamilex [facility] Body weight 2020-12-29 21:56:00 99.791 kg General acute hospital BMI 2020-12-29 21:56:00 36.61 kg/m2 General acute hospital Procedures Procedure Date / Time Performed Performing Clinician Fredrick barahona SARS-COV-2 COVID-19 2021-10-31 21:34:19 Doctor Unassigned, No Un iversity of [place] VACCINE,0.5ML,IM Name [facility] (SYDNEY/J&J) XR HIPS 2 VW LEFT 2020-12-29 23:00:50 Maycol Sanderson [facility] URINALYSIS 2020-12-29 22:28:00 Maycol Sanderson General acute hospital Encounters Start End Encounter Admission Attending Care Care Encounter Source Date/Time Date/Time Type Type Clinicians Facility Department ID 2021-11-22 2021-11-22 Outpatient R ODBULIA [facility] [id number] Univers 16:30:00 16:55:17 [facility] 2021-11-22 2021-11-22 Laboratory Only, Ange Pob2 Test [facility] 1.2 .840.114 [id number] Univers 16:30:00 16:45:00 Only Bryan Daigle 350.1.13 .10 ity [facility] [id number] [id number] Oh dical NAL 225 [facility] 2021-10-31 2021-10-31 Imm/Inj Nurse, Ange Pob Immunization [facility] 1.2.840.114 [id number] Univers 15:40:00 15:40:00 Visit Bryan Daigle 350.1.13 .10 ity [facility] [id number] [place] [id number] [place] dical NAL 421 [facility] 2021-10-31 2021-10-31 Outpatient R OBDULIA [facility] [id number] Univers 15:40:00 15:31:14 BRYNA [facility] 2020-12-29 2020-12-29 Emergency Wendy [facility] [id number] Univers 15:58:00 18:12:00 Maycol Combs [id number] ity of [place] [id number] [facility] [id number] [facility] 084 Branch 2020-12-29 2020-12-29 Emergency X WENDY NMAGUSTÍN ERT [id number] Univers 15:58:00 18:12:00 MAYCOL blackwell [facility] Results Test Test Test Results Result Source Description Time Comments Comments XR HIPS 2 VW 2020-12- Impression: No evidence University [place] [address] of acute fracture or [facility] 23:33:55 dislocation. RL: 4507 [facility] Clinical indication: Left hip pain. Ordering [...] is no radiopaque soft tissue foreign body. [facility], Radiant Results Inft User - 12/29/2020 5:34 [...] nts APPEARANCE (test code = Clear Clear 7870194995) COLOR (test code = 2742875513) Yellow Yellow PH (test code = 1069241941) 4.8-8.0 SP GRAVITY (test code = 1.003-1.030 H 6687725903) GLU U QUAL (test code = Normal Normal 3953249899) BLOOD (test code = 8402619078) Negative Negative KETONES (test code = 0505915996) Negative Negative PROTEIN (test code = 2887-8) 30 mg/dL Negative A UROBILIN (test code = 4.0 mg/dL Normal A 4789462466) BILIRUBIN (test code = Negative Negative 9562665798) NITRITE (test code = 7375007588) Negative Negative LEUK LIZ (test code = Negative Negative 9156730463) RBC/HPF (test code = 8922933849) See_Comment H [Automated message] The system which ge nerated this result transmit mango reference range: 0 - 3 HP F. The reference range was not used to interpret th is result as normal/abnormal . WBC/HPF (test code = 3550813995) See_Comment [Automated message] The system which ge nerated this result transmit mango reference range: 0 - 5 HP F. The reference range was not used to interpret th is result as normal/abnormal . BACTERIA (test code = Negative Negative 9456558449) MUCOUS (test code = 1705955143) Moderate Negative LPF A AMORPHOUS (test code = Rare Rare HPF 6062062201) SQ EPITH (test code = HPF 6337351696) Lab Interpretation (test code = Abnormal 89497-2) [facility]
== END 2022-10-04 18:54 | disposition home or self-care (01) ==
LOC: ER 18:05
DX: Z48.02 Encounter for removal of sutures (principal)

== ENCOUNTER 2022-10-07 13:04 | Emergency (ER) | payer BC ==
--- OUTSIDE RECORDS SUMMARY | 2022-10-07 13:07 | XMS REPORT | Continuity of Care Document ---
:1975 Author Organization [facility] t Address [address] [place] [address] Care Team Providers Name Role Phone LAURA [...] Date Expiration Date S emmanuel DELA CRUZ [facility] [id number] 2020 00:00:00 Problems Condition Condition Condition Status Onset Resolution Last Treating Co mments Source Name Details Category Date Date Treatment Clinician Date Other Other Disease Active 2015-10 Univers general general 2-06 ity of counseling counseling [place]:00[place] and [place] and advice 00 [place] dical for for Branch contracept contracept alonzo [...] different from the original. 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 Pap smear- NIL with absent ECC. 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 edical Branch History SDIL University o f Alcohol Std [place] Medical Drinks Branch History [facility] University o f Alcohol Binge [place] Medic al Branch Alcohol intake 2020-12-29 2020-12-29 Current drinker of Un iversity of 00:00:00 00:00:00 alcohol (finding) [facility] edical Branch Tobacco use and 2013-11-27 2013-11-27 Never used Universit y of exposure 00:00:00 00:00:00 [facility] Branch Alcohol Comment 2013-11-27 2013-11-27 occasionally Univers ity of 00:00:00 00:00:00 [facility] Branch Sex Assigned At [birth year] Universit y of 00:00:00 00:00:00 [facility] Branch Smoking Status Start Date Stop Date Source Never smoker [facility] Branch Medications Ordered Filled [...] 7-10). Indication s: acute pain ibuprofen Yes [id number] 800mg Take 1 U nivers 800 mg [...] 7-10). Indication s: acute pain ibuprofen Yes [id number] 800mg Take 1 U nivers 800 mg [...] 7-10). Indication s: acute pain ibuprofen Yes [id number] 800mg Take 1 U nivers 800 mg 3-03 tablet by ity of tablet 00:00: mouth [place] 00 every 6 Medical (six) Branch hours as needed for Pain (scale 4-6). NUVARING 2015-10 Yes [id number] 1{each} Insert 1 Univers (NUVARING) 2-06 Each into ity of 0.12-0.015 00:00: vagina [place] mg/24 hr 00 once every Medic al vaginal month. Branch insert Insert vaginally and leave in place for 3 consecutiv e weeks, then remove for 1 week. NUVARING 2015-10 Yes [id number] 1{each} Insert 1 Univers (NUVARING) 2-06 Each into ity of 0.12-0.015 00:00: vagina [place] mg/24 hr 00 once every Medic al vaginal month. Branch insert Insert vaginally and leave in place for 3 consecutiv e weeks, then remove for 1 week. NUVARING 2015-10 Yes [id number] 1{each} Insert 1 Univers (NUVARING) 2-06 Each into ity of 0.12-0.015 00:00: vagina [place] mg/24 hr 00 once every Medic al vaginal month. Branch insert Insert vaginally and leave in place for 3 consecutiv e weeks, then remove for 1 week. MULTIVITS,C Yes 1{tbl} Take 1 Tab Univers A,MINERALS/ 1-30 by mouth ity of IRON/FA 16:45: daily. [place] (ONE-A-DAY 12 Medical WOMENS Branch FORMULA ORAL) omega-3 Yes 1g Take 1 g Univer s fatty 1-30 by mouth ity of acids-vitam 16:45: [place]. [place] (FISH 12 Medical OIL) 1,000 Branch mg capsule MULTIVITS,C Yes 1{tbl} Take 1 Tab Univers A,MINERALS/ 1-30 by mouth ity of IRON/FA 10:45: daily. [place] (ONE-A-DAY 12 Medical WOMENS Branch FORMULA ORAL) omega-3 Yes 1g Take 1 g Univer s fatty 1-30 by mouth ity of acids-vitam 10:45: [place]. [place] (FISH 12 Medical OIL) 1,000 Branch mg capsule MULTIVITS,C 2014-0 Yes 1{tbl} Take 1 Tab Univers A,MINERALS/ 1-30 by mouth ity of IRON/FA 10:45: daily. [place] (ONE-A-DAY 12 Medical WOMENS [place] FORMULA ORAL) omega-3 Yes 1g Take 1 g Univer s fatty 30 by mouth ity of acids-vitam 10:45: daily. [place] (FISH 12 Medical OIL) 1,000 Branch mg capsule Immunizations Ordered Filled Immunization Date Status Comments [facility] e Immunization Name Name SARS-COV-2 COVID-19 2021-10-31 Completed Unive rsity of SYDNEY/J&J VACCINE 00:00:00 [facility] SARS-COV-2 COVID-19 2021-10-31 Completed Unive rsity of SYDNEY/J&J VACCINE 00:00:00 [facility] SARS-COV-2 COVID-19 2021-01-17 Completed Unive rsity of SYDNEY/J&J VACCINE 00:00:00 [facility] [place] [facility] 2013-11-27 Completed [facility] 2013-[facility] Completed University of 00:00:00 [facility] Td 2002-10-29 Completed University of 00:00:00 [facility] Td 2002-10-29 Completed University of 00:00:00 [facility] Td 2002-10-29 Completed University of 00:00:00 [facility] Vital Signs Vital Name Observation Time Observation Value Comments Source Systolic blood 2020-12-30 00:06:46 142 mm[Hg] Univer sity of pressure [facility] Diastolic blood 2020-12-30 00:06:46 94 mm[Hg] Unive rsity of pressure [facility] Heart rate 2020-12-30 00:05:40 80 /min [facility] Respiratory rate 2020-12-30 00:05:40 16 /min [facility] Oxygen saturation in 2020-12-30 00:05:40 99 /min [facility] Arterial blood by [facility] Pulse oximetry [place] Body temperature 2020-12-29 21:56:00 37 Yamilex [facility] Body weight 2020-12-29 21:56:00 99.791 kg [facility] BMI 2020-12-29 21:56:00 36.61 kg/m2 [facility] Procedures Procedure Date / Time Performed Performing Clinician Fredrick barahona SARS-COV-2 COVID-19 2021-10-31 21:34:19 Doctor Unassigned, No Un iversity of [place] VACCINE,0.5ML,IM Name [facility] (SYDNEY/J&J) XR HIPS 2 VW LEFT 2020-12-29 23:00:50 Maycol Sanderson [facility] URINALYSIS 2020-12-29 22:28:00 Maycol Sanderson [facility] Encounters Start End Encounter Admission Attending Care Care Encounter Source Date/Time Date/Time Type Type Clinicians Facility Department ID 2021-11-22 2021-11-22 Outpatient R [facility] [id number] Univers 16:30:00 16:55:17 [facility] 2021-11-22 2021-11-22 Laboratory Only, Ange Pob2 Test [facility] 1.2 .840.114 [id number] Univers 16:30:00 16:45:00 Only Bryan Daigle 350.1.13 .10 ity [facility] [id number] [id number] Nv dical NAL 225 [facility] 2021-10-31 2021-10-31 Imm/Inj Nurse, Ange Pob Immunization [facility] 1.2.840.114 [id number] Univers 15:40:00 15:40:00 Visit Bryan Daigle 350.1.13 .10 ity [facility] [id number] [place] [id number] Nv dical NAL 421 [facility] 2021-10-31 2021-10-31 Outpatient R [facility] [id number] Univers 15:40:00 15:31:14 BRYAN [facility] 2020-12-29 2020-12-29 Emergency Wendy [facility] 1.2.840.114 [id number] Univers 15:58:00 18:12:00 Maycol Combs 350.1.13.10 ity of [place] 4.2.7.2.686 [facility] [id number] [facility] 084 Branch 2020-12-29 2020-12-29 Emergency X WENDY IDAGUSTÍN ERT [id number] Univers 15:58:00 18:12:00 MAYCOL blackwell [facility] Results Test Test Test Results Result Source Description Time Comments Comments XR HIPS 2 VW 2020-12- Impression: No evidence University [place] [address] of acute fracture or [facility] 23:33:55 dislocation. RL: 4507 [facility] Clinical indication: Left hip pain. Ordering [...] is no radiopaque soft tissue foreign body. [facility], Radiant Results Inft User - 12/29/2020 [...] nts APPEARANCE (test code = Clear Clear 2034272377) COLOR (test code = 5090869189) Yellow Yellow PH (test code = 3651828325) 4.8-8.0 SP GRAVITY (test code = 1.003-1.030 H 3637903407) GLU U QUAL (test code = Normal Normal 7829138916) BLOOD (test code = 8966776589) Negative Negative KETONES (test code = 5577975979) Negative Negative PROTEIN (test code = 2887-8) 30 mg/dL Negative A UROBILIN (test code = 4.0 mg/dL Normal A 9233306511) BILIRUBIN (test code = Negative Negative 0264348184) NITRITE (test code = 8466719789) Negative Negative LEUK LIZ (test code = Negative Negative 6508097390) RBC/HPF (test code = 8377189030) See_Comment H [Automated message] The system which ge nerated this result transmit mango reference range: 0 - 3 HP F. The reference range was not used to interpret th is result as normal/abnormal . WBC/HPF (test code = 3523277523) See_Comment [Automated message] The system which ge nerated this result transmit mango reference range: 0 - 5 HP F. The reference range was not used to interpret th is result as normal/abnormal . BACTERIA (test code = Negative Negative 6965024485) MUCOUS (test code = 4395990138) Moderate Negative LPF A AMORPHOUS (test code = Rare Rare HPF 6214078943) SQ EPITH (test code = HPF 2241030137) Lab Interpretation (test code = Abnormal 57258-3) [facility]
--- NOTE | 2022-10-07 14:13 | EDPHYS ---
Physician Documentation [facility] Name: Rach Olsen Age: 46 yrs Sex: Female : 1975 Arrival Date: 10/07/2022 Time: 13:13 Bed DIS3 Private MD: ED Physician Shaun Prince HPI: 10/07 14:11 This 46 yrs old Black Female presents to ER via Ambulatory with complaints of Suture snw Removal. 14:11 The patient has sutures on the . Previous treatment: The patient was initially treated snw the care was rendered at [facility], Treatment type: The patient's original treatment included sutures. Sutures/erasmo progress: The patient has no c/o's. The wound is well-healing with no redness, swelling, discharge, or dehiscence reported. The patient has not experienced similar symptoms in the past. as noted. Historical: - Allergies: 14:01 Codeine; iw - PMHx: 14:01 chronic back pain; iw - PSHx: 14:01 hysterectomy; iw ROS: 14:10 Constitutional: Negative for fever, chills, and weight loss, Eyes: Negative for injury, snw pain, redness, and discharge, ENT: Negative for injury, pain, and discharge, Neck: Negative for injury, pain, and swelling, Cardiovascular: Negative for chest pain, palpitations, and edema, Respiratory: Negative for shortness of breath, cough, wheezing, and pleuritic chest pain, Abdomen/GI: Negative for abdominal pain, nausea, vomiting, diarrhea, and constipation, Back: Negative for injury and pain, : Negative for injury, bleeding, discharge, and swelling, MS/Extremity: Negative for injury and deformity, Skin: Negative for injury, rash, and discoloration, Neuro: Negative for headache, weakness, numbness, tingling, and seizure. Exam: 14:09 Constitutional: This is a well developed, well nourished patient who is awake, alert, snw and in no acute distress. Head/Face: Normocephalic, atraumatic. Eyes: Pupils equal round and reactive to light, extra-ocular motions intact. Lids and lashes normal. Conjunctiva and sclera are non-icteric and not injected. Cornea within normal limits. Periorbital areas with no swelling, redness, or edema. Chest/axilla: Normal chest wall appearance and motion. Nontender with no deformity. No lesions are appreciated. Cardiovascular: Regular rate and rhythm with a normal S1 and S2. No gallops, murmurs, or rubs. Normal PMI, no JVD. No pulse deficits. Respiratory: Lungs have equal breath sounds bilaterally, clear to auscultation and percussion. No rales, rhonchi or wheezes noted. No increased work of breathing, no retractions or nasal flaring. Abdomen/GI: Soft, non-tender, with normal bowel sounds. No distension or tympany. No guarding or rebound. No evidence of tenderness throughout. Back: No spinal tenderness. No costovertebral tenderness. Full range of motion. MS/ Extremity: Pulses equal, no cyanosis. Neurovascular intact. Full, normal range of motion. Neuro: Awake and alert, GCS 15, oriented to person, place, time, and situation. Cranial nerves II-XII grossly intact. Motor strength 5/5 in all extremities. Sensory grossly intact. Cerebellar exam normal. Normal gait. 14:09 Skin: Appearance: Color: normal in color, injury, laceration(s), the wound is approximately 2.5 cm(s), of the dorsal aspect of proximal phalanx of left index finger previously sutured, edges well approximated. No bleeding, redness, or discharge. Vital Signs: 13:58 BP 130 / 90 RA (/reg); Pulse 89; Resp 16; Temp 98.4(O); Pulse Ox 98% on R/A; Weight zm 77.11 kg; Height 5 ft. 6 in. (167.64 cm); Pain 0/10; 13:58 Body Mass Index 27.44 (77.11 kg, 167.64 cm) zm MDM: 13:15 Patient medically screened. snw 20:58 Data reviewed: vital signs, nurses notes. snw Administered Medications: No medications were administered Disposition: 17:30 Co-signature as Attending Physician, Shaun Prince MD I agree with the assessment and rt plan of care. Disposition Summary: 10/07/22 14:12 Discharge Ordered Location: Home snw Condition: Stable snw Diagnosis - Encounter for removal of sutures snw Followup: snw - With: Emergency Department - When: As needed - Reason: Worsening of condition Followup: snw - With: Private Physician - When: 2 - 3 days - Reason: Recheck today's complaints, Continuance of care, Re-evaluation by your physician Discharge Instructions: - Discharge Summary Sheet snw - Suture Removal, Care After snw - Wound Care, Adult snw Forms: - Medication Reconciliation Form snw - Thank You Letter snw - Antibiotic Education snw - Prescription Opioid Use snw Signatures: Nisa Paul FNP-C DELICATESSEN DEPARTMENT MANAGER-Csnw Jennifer Pulido, RN RN iw Shaun Prince MD MD rt
--- NOTE | 2022-10-07 14:13 | ER ---
Nurse's Notes [facility] Name: Rach Olsen Age: 46 yrs Sex: Female : 1975 Arrival Date: 10/07/2022 Time: 13:13 Bed DIS3 Private MD: Diagnosis: Encounter for removal of sutures Presentation: 10/07 14:00 Chief complaint: Patient states: needs sutures removed from left hand. Coronavirus iw screen: At this time, the client does not indicate any symptoms associated with coronavirus-19. Ebola Screen: Patient negative for fever greater than or equal to 101.5 degrees Fahrenheit, and additional compatible Ebola Virus Disease symptoms Patient denies exposure to infectious person. Patient denies travel to an Ebola-affected area in the 21 days before illness onset. No symptoms or risks identified at this time. Initial Sepsis Screen: Does the patient meet any 2 criteria? No. Patient's initial sepsis screen is negative. Does the patient have a suspected source of infection? No. Patient's initial sepsis screen is negative. Risk Assessment: Do you want to hurt yourself or someone else? Patient reports no desire to harm self or others. Onset of symptoms was October 07, 2022. 14:00 Method Of Arrival: Ambulatory iw 14:00 Acuity: LUIS MIGUEL 4 iw Historical: - Allergies: 14:01 Codeine; iw - PMHx: 14:01 chronic back pain; iw - PSHx: 14:01 hysterectomy; iw Vital Signs: 13:58 BP 130 / 90 RA (/reg); Pulse 89; Resp 16; Temp 98.4(O); Pulse Ox 98% on R/A; Weight zm 77.11 kg; Height 5 ft. 6 in. (167.64 cm); Pain 0/10; 13:58 Body Mass Index 27.44 (77.11 kg, 167.64 cm) ED Course: 13:13 Patient arrived in ED. am2 13:15 Nisa Paul FNP-C is [facility]. snw 13:15 Shaun Prince MD is Attending Physician. snw 14:01 Triage completed. iw 14:20 Jennifer Pulido, RN is Primary Nurse. iw Administered Medications: No medications were administered Outcome: 14:12 Discharge ordered by . snw 14:20 Patient left the ED. iw Signatures: Nisa Paul FNP-C DUDE WRANGLER-Csnw Jennifer Pulido, RN RN iw Susanna Valencia amCarmita Parikh
[2022-10-07 20:23] VITALS: BP 130/90; TEMP 98.4; O2SAT 98
== END 2022-10-07 14:20 | disposition home or self-care (01) ==
LOC: ER 13:04
DX: Z48.02 Encounter for removal of sutures (principal)
CPT/HCPCS: 99281